=== PATIENT | female | born 1960 | race Caucasian/White ===

== ENCOUNTER → 2021-06-07 12:51 | Outpatient (BNVA) | payer MEDICAID, SELFPAY | PROVIDERS: Family Provider Internal Medicine; Visit Provider Nurse Practitioner Family | DX: J06.9 Acute upper respiratory infection, unspecified (principal); Z20.822 Contact with and (suspected) exposure to COVID-19 | CPT/HCPCS: 87635 ==

== ENCOUNTER 2021-06-14 07:09 | Outpatient (CLI) | payer MEDICAID, SELFPAY ==
[2021-06-14 07:38] VITALS: BP 138/87; PULSE 64; TEMP 36.6; O2SAT 97
--- NOTE | 2021-06-14 07:39 | AMB.MCA ---
Patient Information Referred by: SEGUN Zarate Symptom onset date: 06/05/21 COVID 19 common symptoms: positive fever(s), chills, cough, fatigue, body aches and headache(s) Severity: mild Treatment prior to arrival: none [facility] COVID test results: SARS-CoV-2 RNA (RT-PCR) Detected (NOT DETECTED) A 06/07/21 12:51 06/07/21 Criteria/Plan Inclusion/Exclusion Criteria weight >/= 40kg, + direct test </= 10 days ago and symptom onset </= 10 days ago BMI >/= 35 (new guidelines state BMI only needs to be over 25 which would qualify her) not requiring hospitalization, not requiring oxygen (if not chronically on oxygen) and no increase oxygen requirement (if chronically on oxygen) Patient education patient/family/caregiver received/reviewed fact sheet, Emergency Use Authorization/unapproved drug status discussed with patient/family/caregiver, alternatives to this treatment discussed with patient/family/caregiver, risks and benefits of medication reviewed with patient/family/caregiver, patient/family/caregiver given opportunity for questions, which were answered and patient consents to receiving Monoclonal Antibody Treatment Plan for treatment Meets criteria for Monoclonal Antibody infusion Ordering Monoclonal Antibody infusion for today
[2021-06-14 09:14] VITALS: BP 128/86; PULSE 62; TEMP 36.7; O2SAT 97
== END 2021-06-14 10:09 | disposition home or self-care (01) ==
LOC: ER 07:16
PROVIDERS: PCP Family Medicine; Visit Provider Nurse Practitioner Family
DX: U07.1 COVID-19 (principal)

== ENCOUNTER 2021-07-03 09:24 | Emergency (ER) | payer MEDICAID, SELFPAY ==
[2021-07-03] VITALS (13 sets, daily range): BP systolic 110–168; BP diastolic 61–101; PULSE 56–104; RESP 16–20; TEMP 37.4; O2SAT 93–98; BMI 39.3
--- NOTE | 2021-07-03 09:30 | USR_ITS ---
PROCEDURE INFORMATION: Exam: US Abdomen, Limited; Right Upper Quadrant Exam date and time: 07/03/2021 9:30 AM Age: 61 years old Clinical indication: Abdominal pain; Epigastric; Additional info: Ruq abd pain TECHNIQUE: Imaging protocol: US abdomen. Real time ultrasound with image documentation. Limited exam focused on the right upper quadrant. COMPARISON: US gall bladder [id number] 12/18/2015 9:41 AM FINDINGS: Liver: The liver measures approximately 12.1 cm in the sagittal plane. No focal liver mass or intrahepatic biliary ductal dilatation. Gallbladder: There is cholelithiasis. No gallbladder wall thickening or pericholecystic fluid. The technologist reported a negative sonographic Hernandez's sign. Common bile duct: The visualized extrahepatic bile duct measures up to 10.5 mm in diameter. The distal common bile duct was likely not visualized due to bowel gas. Pancreas: The pancreas was sought but not visualized due to interference by bowel gas. Right kidney: The right kidney measures approximately 9.5 cm in length. Normal parenchymal echogenicity. Mild diffuse parenchymal thinning. No hydronephrosis. Aorta: The visualized portion of the abdominal aorta is within normal limits. Portal venous: There is hepatopetal flow in the main portal vein on Doppler evaluation. Inferior vena cava: The visualized portion of the inferior vena cava is within normal limits. US/US gall bladder [id number] IMPRESSION: 1. Cholelithiasis. 2. Extrahepatic biliary ductal dilatation, cause uncertain.
--- NOTE | 2021-07-03 09:31 | W.ED.ABDPA2 ---
HPI - Abdominal Pain General: Chief Complaint: Abdominal Pain Stated Complaint: RUQ PAIN Time Seen by Provider: 07/03/21 09:26 History of Present Illness: HPI narrative: 61-year-old female comes in complaining of right upper quadrant pain that woke her up from sleep this morning. She is not previously had any symptoms like this. Not been any difficulty with reflux. She was diagnosed with Covid on June 07. Her symptoms have completely resolved she is not been short of breath. She is not noticed this pain being more significant with deep inspiration. She denies any diarrhea or any vomiting. She denies any hematemesis or coffee-ground emesis. She is not currently on any PPIs or H2 blockers. She does occasionally take 800 mg tablets of ibuprofen. She additionally is on Suboxone which she takes every day buprenorphine 8 naloxone 2. She is not noticed anything that exacerbates or relieves the discomfort. She did receive 100 mcg IM of fentanyl in route with only moderate relief of pain. MD elicited complaint: abdominal pain Pertinent past history: none Pain Consistency: constant Location: RUQ Severity: severe Quality: cramping and stabbing Radiation: none Migration to: no migration Exacerbating factors: nothing Relieving factors: nothing Associated Symptoms: Denies anorexia, belching, bloating, change in bowel habits, change in stool character, chills, coffee ground emesis, constipation, GI cramping, diarrhea, dyspepsia, dysuria, excessive flatus, fever(s), heartburn, hematochezia, hematuria, hematemesis, fecal incontinence, loose stools, melena, nausea, poor appetite, syncope and vomiting Review of Systems Const: Denies: fever(s) or chills ENMT: Denies: throat pain, ear or mastoid pain, nasal discharge or nasal congestion Card: Denies: syncope Resp: Denies: dyspnea, productive cough or non-productive cough GI: Denies: nausea, vomiting, hematemesis, coffee ground emesis, heartburn, diarrhea, constipation, bloating, GI cramping, belching, excessive flatus, fecal incontinence, change in bowel habits, change in stool character, hematochezia or melena : Denies: dysuria or hematuria Skin/Breast: Denies: rash or pruritus Physical Exam Const: COMMON NORMALS: no acute distress GENERAL APPEARANCE: cooperative and comfortable ORIENTATION/CONSCIOUSNESS: Yes awake, Yes oriented to person, Yes oriented to place and Yes oriented to time HENMT: COMMON NORMALS: normocephalic, atraumatic and hearing grossly normal bilaterally HEAD & SCALP: normocephalic and atraumatic Neck/C-Spine: COMMON NORMALS: no JVD Lymph: LYMPHATIC: no lymphadenopathy noted and no lymphedema noted Resp: COMMON NORMALS: normal respiratory effort, No retractions, No use of accessory muscles and clear to auscultation bilaterally AUSCULTATION: clear to auscultation bilaterally Cardio: COMMON NORMALS: no JVD, regular rate, regular rhythm and No murmurs present (Cardio) RATE: regular rate RHYTHM: regular rhythm GI: COMMON NORMALS: No hepatosplenomegaly present AUSCULTATION: Yes normoactive bowel sounds PALPATION: Yes Tenderness to palpation present (GI) Details: RUQ, No Guarding due to palpation present (GI) and Yes No hepatosplenomegaly present Extremity: COMMON NORMALS: normal to inspection, capillary refill normal, no clubbing, cyanosis or edema, no calf tenderness and no pedal edema Neuro: SENSORIUM/ORIENTATION: Yes oriented to person, Yes oriented to place and Yes oriented to time Skin: COMMON NORMALS: no rashes or lesions noted GENERAL SKIN EXAM: no rashes or lesions noted Course Vital Signs: Vital signs: Vital Signs Temperature 99.3 F 07/03/21 09:25 Pulse Rate 70 07/03/21 16:03 Respiratory Rate 18 07/03/21 16:03 Blood Pressure 110/78 07/03/21 16:03 Pulse Oximetry 97 07/03/21 16:03 MDM - Abdominal Pain MDM Narrative: Medical decision making narrative: Discussed imaging findings with the [facility]. There is a right lung mass left adrenal mass there is also something at the pancreatic head that is suspicious. There are some dilation of the common duct and there is cholelithiasis on the ultrasound. Concerned even though her liver functions lipase are normal she may have an early obstruction which is causing the pain. We will go ahead and do an MRCP also concerned about the possibility of PE we will get a CTA of the chest on her as well. MRCP there is no evidence of common bile duct blockage. She may have just passed a stone is no evidence of acute cholecystitis. Also the masses of concern on the CT were not identified on the pancreas. Organ to go ahead and discharge her home we will have her follow-up with her primary care doctor which will have case management set up. She will need further evaluation of the other areas of concern lung and left adrenal gland. This can be done to the primary care doctor. As to her abdominal pain will get and go ahead and get her set up for a HIDA scan and then have her follow-up with surgery. Reviewing chart I see that she did not get Levaquin at the time of discharge as had intended. Will call that in for her. We will also make sure case management gets the PCP set up in the follow-up on the imaging findings. Lab Data: Labs: Lab Results 07/03/21 07/03/21 07/03/21 Range/Units 10:10 10:10 10:37 WBC 10.4 H (4.0-10.0) 10^3/ uL RBC 4.62 (4.1-5.3) 10^6/u L Hgb 12.9 (11.5-15.3) g/dL Hct 40.2 (37.0-47.0) % MCV 87.0 (81-99) fl MCH 27.9 L (28.0-34.0) pg MCHC 32.1 (30.0-36.0) g/dL RDW 12.8 (12.1-15.1) % Plt Count 302 (130-400) 10^3/c mm MPV 9.5 (7.4-10.4) fL Neut % (Auto) 69.1 % Lymph % (Auto) 18.4 % [place] % (Auto) 8.4 % Eos % (Auto) 2.5 % Baso % (Auto) 0.9 % Neut # (Auto) 7.20 (1.8-7.7) 10^3/u L Lymph # (Auto) 1.9 (0.8-4.8) 10^3/u L [place] # (Auto) 0.9 (0.2-0.9) 10^3/u L Eos # (Auto) 0.3 (0.0-0.8) 10^3/u L Baso # (Auto) 0.1 (0.0-0.1) 10^3/u L Nucleated RBC % (a uto) 0 % Nucleated RBCs # 0.0 /100WBC D-Dimer 2.36 H (0-0.59) ug/mIFE U Sodium 136 (136-145) mmol/L Potassium 4.0 (3.5-5.1) mmol/L Chloride 100 (98-107) mmol/L Carbon Dioxide 25 (22-29) mmol/L Anion Gap 15.0 (5-19) BUN 18 (8-23) mg/dL Creatinine 1.0 H (0.5-0.9) mg/dL GFR Calculation 56.6 L (90-130) mL/min Glucose 101 (65-115) mg/dL Calculated Osmolal ity 284 L (285-295) mOsm/k g Calcium 8.7 (8.5-10.5) mg/dL Total Bilirubin 0.2 (0.15-1.2) mg/dL AST 11 (0-32) U/L ALT 6 (0-33) U/L Alkaline Phosphata se 95 (35-105) IU/L Total Protein 7.7 (6.6-8.7) g/dL Albumin 3.6 (3.5-5.2) g/dL Globulin 4.1 (1.3-4.6) g/dL Lipase 15 (13-60) U/L Urine Color (Yellow) Urine Appearance (CLEAR) Urine pH (5-7) Ur Specific Gravit y (1.005-1.030) Urine Protein (Negative) Urine Glucose (UA) (Normal) Urine Ketones (Negative) Urine Blood (Negative) Urine Nitrate (Negative) Urine Bilirubin (Negative) Urine Urobilinogen (Negative) mg/dL Ur Leukocyte Jory ase (Negative) 07/03/21 Range/Units 11:11 WBC (4.0-10.0) 10^3/ uL RBC (4.1-5.3) 10^6/u L Hgb (11.5-15.3) g/dL Hct (37.0-47.0) % MCV (81-99) fl MCH (28.0-34.0) pg MCHC (30.0-36.0) g/dL RDW (12.1-15.1) % Plt Count (130-400) 10^3/c mm MPV (7.4-10.4) fL Neut % (Auto) % Lymph % (Auto) % [place] % (Auto) % Eos % (Auto) % Baso % (Auto) % Neut # (Auto) (1.8-7.7) 10^3/u L Lymph # (Auto) (0.8-4.8) 10^3/u L [place] # (Auto) (0.2-0.9) 10^3/u L Eos # (Auto) (0.0-0.8) 10^3/u L Baso # (Auto) (0.0-0.1) 10^3/u L Nucleated RBC % (a uto) % Nucleated RBCs # /100WBC D-Dimer (0-0.59) ug/mIFE U Sodium (136-145) mmol/L Potassium (3.5-5.1) mmol/L Chloride (98-107) mmol/L Carbon Dioxide (22-29) mmol/L Anion Gap (5-19) BUN (8-23) mg/dL Creatinine (0.5-0.9) mg/dL GFR Calculation (90-130) mL/min Glucose (65-115) mg/dL Calculated Osmolal ity (285-295) mOsm/k g Calcium (8.5-10.5) mg/dL Total Bilirubin (0.15-1.2) mg/dL AST (0-32) U/L ALT (0-33) U/L Alkaline Phosphata se (35-105) IU/L Total Protein (6.6-8.7) g/dL Albumin (3.5-5.2) g/dL Globulin (1.3-4.6) g/dL Lipase (13-60) U/L Urine Color Yellow (Yellow) Urine Appearance Clear (CLEAR) Urine pH 5 (5-7) Ur Specific Gravit y 1.020 (1.005-1.030) Urine Protein Neg (Negative) Urine Glucose (UA) Norm (Normal) Urine Ketones Negative (Negative) Urine Blood Neg (Negative) Urine Nitrate Negative (Negative) Urine Bilirubin Neg (Negative) Urine Urobilinogen Norm (Negative) mg/dL Ur Leukocyte Jory ase Negative (Negative) Discharge Plan Discharge Patient Disposition: Home Clinical Impression: Biliary colic, Incidental lung nodule, Adrenal mass, left Condition: Stable Prescriptions: New promethazine 25 mg tablet 25 mg PO Q6H PRN (Reason: nausea and vomiting) Qty: 20 RF: 0 Protonix 40 mg tablet,delayed release (DR/EC) 40 mg PO QAM 56 Days Qty: 56 RF: 0 No Action ibuprofen 800 mg tablet 800 mg PO Q8H PRN (Reason: Pain) RF: 0 buprenorphine-naloxone [Suboxone] 8-2 mg film 1 film buccal DAILY RF: 0 gabapentin 800 mg tablet 400 mg PO DAILY RF: 0 Discharge Orders: Discharge ED (Routine); Ordered 07/03/21 Ordered By: Jony Neely Referrals: Sarah Hogan DO [Primary Care Provider] - Discharge Diet: As Directed Discharge Activity: Resume usual activity Patient Instructions: Abdominal Pain (ED), Opioid Safety Activity Restrictions/Additional Instructions: His management will call to get you set up for a HIDA scan and follow-up with a general surgeon. They will also help you arrange to establish with a primary care physician. Return if you have any worsening problems Coding Level of Care Code ED [employer] for [employer] Exam Comprehensive
[2021-07-03] MEDS: HYDROmorphone 1 mg/mL INJ 1 mL IVP (09:57)
[2021-07-03] MEDS: promethazine 25 mg/mL SDV 1 mL IM (09:58)
[2021-07-03 10:28] LABS: Basophils # 0.1 10^3/uL (0.0-0.1); Basophils % 0.9 %; Eosinophils # 0.3 10^3/uL (0.0-0.8); Eosinophils % 2.5 %; Hematocrit 40.2 % (37.0-47.0); Hemoglobin 12.9 g/dL (11.5-15.3); Lymphocytes # 1.9 10^3/uL (0.8-4.8); Lymphocytes % 18.4 %; Mean Corpuscular HGB Conc 32.1 g/dL (30.0-36.0); Mean Corpuscular Hemoglobin 27.9 pg (28.0-34.0); Mean Platelet Volume 9.5 fL (7.4-10.4); Monocytes # 0.9 10^3/uL (0.2-0.9); Monocytes % 8.4 %; Neutrophils % 69.1 %; Nucleated Red Blood Cells % 0 %; Platelet Count 302 10^3/cmm (130-400); Red Blood Count 4.62 10^6/uL (4.1-5.3); Red Cell Distribution Width 12.8 % (12.1-15.1); White Blood Count 10.4 10^3/uL (4.0-10.0)
[2021-07-03 10:50] LABS: Alanine Aminotransferase 6 U/L (0-33); Albumin Level 3.6 g/dL (3.5-5.2); Alkaline Phosphatase 95 IU/L (35-105); Aspartate Amino Transferase 11 U/L (0-32); Blood Urea Nitrogen 18 mg/dL (8-23); Calcium 8.7 mg/dL (8.5-10.5); Carbon Dioxide 25 mmol/L (22-29); Chloride 100 mmol/L (98-107); Globulin 4.1 g/dL (1.3-4.6); Glomerular Filtration Rate 56.6 mL/min (90-130); Glucose 101 mg/dL (65-115); Lipase 15 U/L (13-60); Osmolality Calculated 284 mOsm/kg (285-295); Sodium 136 mmol/L (136-145); Total Bilirubin 0.2 mg/dL (0.15-1.2); Total Protein 7.7 g/dL (6.6-8.7)
--- NOTE | 2021-07-03 11:15 | CTR_ITS ---
PROCEDURE INFORMATION: Exam: CT Abdomen And Pelvis With Contrast Exam date and time: 07/03/2021 11:15 AM Age: 61 years old Clinical indication: Abdominal pain; Generalized. TECHNIQUE: Imaging protocol: Computed tomography of the abdomen and pelvis with contrast. Radiation optimization: All CT scans at this facility use at least one of these dose optimization techniques: automated exposure control; mA and/or kV adjustment per patient size (includes targeted exams where dose is matched to clinical indication); or iterative reconstruction. Contrast material: OMNIPAQUE 300; Contrast volume: 95 ml; Contrast route: INTRAVENOUS (IV); COMPARISON: US GALLBLADDER 07/03/2021 9:50 AM RADIATION DOSE METRICS: Total DLP (mGy-cm): 1627.46 FINDINGS: Lungs: Partially visualized soft tissue mass or consolidation in the right middle lobe. Minimal bilateral dependent atelectasis, more so on the right. Liver: The liver is homogeneous and is not enlarged. Gallbladder and bile ducts: No calcified gallstones. No gallbladder wall thickening. No pericholecystic fluid or inflammation. The extrahepatic bile duct measures up to 10.5 mm in diameter. No calcified common bile duct calculus visualized. Pancreas: There is low-attenuation and haziness of the parenchyma of the pancreatic head. This may be due to focal pancreatitis or neoplasm. No pancreatic ductal dilatation. No pseudocyst formation. Spleen: The spleen is homogeneous and is not enlarged. Adrenal glands: There is a 3.4 cm left adrenal mass with nonspecific attenuation measurements. The right adrenal gland appears normal. Kidneys and ureters: No hydronephrosis, nephrolithiasis, or renal mass. Stomach and bowel: No bowel obstruction, colitis or diverticulitis. Appendix: The appendix has a normal caliber with no wall thickening. No periappendiceal stranding. Intraperitoneal space: No ascites or pneumoperitoneum. Vasculature: No abdominal aortic aneurysm. The mesenteric arteries are patent. The mesenteric, portal, and hepatic veins are patent. Lymph nodes: No enlarged lymph nodes. Urinary bladder: The urinary bladder is small in volume. No bladder calculus. Reproductive: Exophytic calcified lesion off the posterior body of the uterus likely due to a calcified leiomyoma. Bones/joints: There is a curvature of the lumbar spine convex to the left associated with multilevel disc degeneration and facet arthropathy. Soft tissues: No acute soft tissue abnormality. CT/CT abdomen pelvis w con* [id number] IMPRESSION: 1. Changes involving the pancreatic head which might be due to acute pancreatitis or neoplasm. Correlate with the appropriate laboratory parameters. 2. Extrahepatic biliary ductal dilatation. This could be due to compression of the distal common bile duct. This study cannot exclude choledocholithiasis. 3. The prior comparison US GALLBLADDER demonstrated cholelithiasis. 4. Soft tissue mass versus consolidation in the right middle lobe. Recommend CT CHEST with IV contrast in follow-up. 5. Left adrenal mass. The differential diagnosis includes metastatic deposit given the above. Radiation Dose CTDIVOL = (mGy): DLP = 1627.46 (mGy-cm)
[2021-07-03] MEDS: iohexol 300 mg/mL 100 mL Btl IV (11:43)
[2021-07-03 11:49] LABS: Add Urine Microscopic? NO; Charge for UA Resulting for Rev
[2021-07-03 12:12] LABS: Bilirubin Urine Neg (Negative); Blood Urine Neg (Negative); Glucose Urine UA Norm (Normal); Ketones Urine Negative (Negative); Leukocyte Esterase Urine Negative (Negative); Nitrate Urine Negative (Negative); Protein Urine Neg (Negative); Urine Appearance Clear (CLEAR); Urine Color Yellow (Yellow); Urobilinogen Urine Norm (Negative); pH Urine 5 (5-7)
--- NOTE | 2021-07-03 12:26 | CTR_ITS ---
PROCEDURE INFORMATION: Exam: CTA Chest With Contrast Exam date and time: 07/03/2021 12:26 PM Age: 61 years old Clinical indication: Abnormal findings; Abnormal radiologic exam of lung or chest; Patient HX: SOB w rll abnormality seen on abd CT; Additional info: Dyspnea TECHNIQUE: Imaging protocol: Computed tomographic angiography of the chest with contrast. 3D rendering (Not supervised by radiologist): MIP and/or 3D reconstructed images were created by the technologist. Radiation optimization: All CT scans at this facility use at least one of these dose optimization techniques: automated exposure control; mA and/or kV adjustment per patient size (includes targeted exams where dose is matched to clinical indication); or iterative reconstruction. Contrast material: VISI 320; Contrast volume: 69 ml; Contrast route: INTRAVENOUS (IV); COMPARISON: CT ABDOMEN/PELVIS 07/03/2021 11:38 AM RADIATION DOSE METRICS: Total DLP (mGy-cm): 588.48 FINDINGS: Pulmonary arteries: No sign of acute pulmonary embolism. Aorta: No thoracic aortic aneurysm or dissection. Lungs: There is a dominant focal opacity in the anteromedial right middle lobe which is partially bounded by the major and minor fissures. The fissures are not bowed. There is air bronchogram formation within the opacity as well as nondisplaced opacifying pulmonary arterial branches. The findings favor pneumonia as opposed to neoplasm. There are smaller noncalcified opacities in the right middle lobe as well as the posteromedial left lower lobe which could be due to additional foci of pneumonia. Bilateral asymmetric dependent atelectasis, more so on the right side. Pleural spaces: No pneumothorax. No pleural effusion. Heart: The heart is not enlarged. No pericardial effusion. Lymph nodes: Slightly prominent right hilar and mediastinal lymph nodes which could be reactive in nature. Bones/joints: No acute osseous abnormality. Soft tissues: No acute soft tissue abnormality. CT/CT angio chest PE protcl [id number] IMPRESSION: Favor multifocal pneumonia with the dominant focus in the right middle lobe. Strongly recommend follow-up CT CHEST after treatment to document resolution. Radiation Dose CTDIVOL = (mGy): DLP = 588.48 (mGy-cm)
--- NOTE | 2021-07-03 12:54 | MRR_ITS ---
PROCEDURE INFORMATION: Exam: MR Abdomen Without Contrast Exam date and time: 07/03/2021 12:54 PM Age: 61 years old Clinical indication: Abdominal pain; Localized; Right upper quadrant (ruq); Additional info: Dialated cbd TECHNIQUE: Imaging protocol: MR of the abdomen without contrast. COMPARISON: CT abdomen pelvis w con* [id number] 07/03/2021 11:38 AM FINDINGS: Liver: No mass. Gallbladder and bile ducts: Cholelithiasis. No gallbladder distention, wall thickening, or pericholecystic fluid. The common bile duct is mildly dilated up to 1 cm, but smoothly tapers without stricturing or filling defect. No intrahepatic biliary dilation. Pancreas: Unremarkable. No ductal dilation. Spleen: Unremarkable. No splenomegaly. Adrenal glands: 3 cm left adrenal lesion with signal dropout on in and out phase sequences consistent with microscopic fat/adenoma. Right adrenal gland is unremarkable. Kidneys and ureters: Unremarkable. No solid mass. No hydronephrosis. Kidneys and ureters: Unremarkable. No solid mass. No hydronephrosis. Stomach and bowel: Visualized stomach and intestines are unremarkable. Intraperitoneal space: No free fluid. Arteries: No abdominal aortic aneurysm. Bones/joints: Unremarkable. Soft tissues: Unremarkable. MR/MR MRCP [id number] IMPRESSION: 1. Mildly dilated common bile duct at 1 cm, likely incidental. There is no evidence of biliary stricturing or filling defect to suggest choledocholithiasis. 2. Cholelithiasis without imaging findings to suggest acute cholecystitis. 3. 3 cm left adrenal adenoma. COMMENTS: Consistent with the [place] [employer]'s Incidental Findings Committee white paper (J Am Allen Radiol 2017): For any incidental adrenal lesion greater than 1 cm but less than 4 cm classified in this report as benign, likely benign, or containing fat (including classification as an adenoma or myelolipoma), no follow-up imaging is recommended per consensus recommendations based on imaging criteria. Further lab evaluation could be pursued if warranted based on clinical findings.
[2021-07-03 13:16] LABS: D Dimer 2.36 ug/mIFEU (0-0.59)
[2021-07-03] MEDS: iodixanol 320 mg/mL 100mL Btl IV (13:35)
[2021-07-03] MEDS: HYDROmorphone 1 mg/mL INJ 1 mL 0.5 MG IVP (13:49)
--- NOTE | 2021-07-05 11:06 | DCPLANNER ---
Addendum entered by Talia Zhu 07/13/21 07:31: area manager emailed Rosanna at General Surgery to check on appointment for patient. Addendum entered by Talia Zhu 07/07/21 13:44: When insurance case manager spoke with patient, she stated that she had an appointment scheduled with her primary care physician. Original Note: area manager had message to schedule an outpatient HIDA scan, a followup with general surgery, and to speak with patient about a primary care. area manager emailed patients information to both Rosanna and Brianne at [facility] General Surgery. Patients information will be printed and reviewed. Clinic will call patient with appointment information. area manager faxed signed order for HIDA scan to centralized scheduling, who will call patient with appointment information. area manager spoke with patient about getting a primary care physician. Patient stated that she has a primary care physician.
--- NOTE | 2021-07-07 14:08 | DCPLANNER ---
Patient has a HIDA scan scheduled for August 05, 2021 at 10:00. Centralized scheduling will call patient with appointment information.
--- NOTE | 2021-07-14 07:31 | DCPLANNER ---
Patient has a follow up appointment scheduled for , July 22, 2021 at 9:[address] Grewal. Clinic will call patient with appointment information.
--- NOTE | 2021-08-06 08:36 | DCPLANNER ---
Patient had a follow up appointment scheduled for 07.22.21 with general surgery - patient did attend appointment. Patient had a HIDA scan scheduled for 08.05.21 - patient did not attend appointment.
== END 2021-07-03 16:03 | disposition home or self-care (01) ==
PROVIDERS: Physician Assistant; Emergency Provider Family Medicine; PCP Family Medicine
DX: E27.9 Disorder of adrenal gland, unspecified (principal); K80.50 Calculus of bile duct without cholangitis or cholecystitis without obstruction; R91.1 Solitary pulmonary nodule
CPT/HCPCS: 71275; 74177; 74181; 76705; 80053; 81003; 83690; 85025; 85378; 96372; 96374; 96376; 99284; 99291; 99292; J1170; J2550; Q9967

== ENCOUNTER 2022-06-13 11:57 | Outpatient (CLI) | payer MEDICAID, SELFPAY ==
[2022-06-13 12:56] LABS: Basophils # 0.1 10^3/uL (0.0-0.1); Basophils % 1.1 %; Eosinophils # 0.2 10^3/uL (0.0-0.8); Eosinophils % 3.9 %; Hematocrit 39.9 % (37.0-47.0); Hemoglobin 13.2 g/dL (11.5-15.3); Lymphocytes # 2.1 10^3/uL (0.8-4.8); Lymphocytes % 37.6 %; Mean Corpuscular HGB Conc 33.1 g/dL (30.0-36.0); Mean Corpuscular Hemoglobin 28.6 pg (28.0-34.0); Mean Corpuscular Volume 86.4 fl (81-99); Mean Platelet Volume 9.4 fL (7.4-10.4); Monocytes # 0.4 10^3/uL (0.2-0.9); Monocytes % 7.2 %; Neutrophils # 2.73 10^3/uL (1.8-7.7); Nucleated Red Blood Cells % 0 %; Platelet Count 213 10^3/cmm (130-400); Red Blood Count 4.62 10^6/uL (4.1-5.3); Red Cell Distribution Width 12.8 % (12.1-15.1); White Blood Count 5.5 10^3/uL (4.0-10.0)
[2022-06-13 13:45] LABS: Alanine Aminotransferase 10 U/L (0-33); Albumin Level 4.5 g/dL (3.5-5.2); Alkaline Phosphatase 61 IU/L (35-105); Anion Gap 13.6 (5-19); Aspartate Amino Transferase 16 U/L (0-32); Blood Urea Nitrogen 20 mg/dL (8-23); Calcium 9.2 mg/dL (8.5-10.5); Carbon Dioxide 27 mmol/L (22-29); Chloride 103 mmol/L (98-107); Chol HDL Ratio 2.77 mg/dL (0.0-4.40); Cholesterol 166 mg/dL (0-200); Globulin 3.1 g/dL (1.3-4.6); Glomerular Filtration Rate 63.7 mL/min (90-130); Glucose 92 mg/dL (65-115); HDL Cholesterol 60 mg/dL (60-100); LDL Cholesterol Calculated 94 mg/dL (50-129); LDL HDL Ratio 1.57 RATIO (0.00-3.22); Osmolality Calculated 290 mOsm/kg (285-295); Potassium 4.6 mmol/L (3.5-5.1); Sodium 139 mmol/L (136-145); Thyroid Stimulating Hormone 0.91 uIU/mL (0.27-4.20); Total Bilirubin 0.3 mg/dL (0.15-1.2); Total Protein 7.6 g/dL (6.6-8.7); Triglycerides 60 mg/dL (0-150)
== END 2022-06-13 11:58 | disposition home or self-care (01) ==
LOC: LAB 12:07
PROVIDERS: PCP Family Medicine; Visit Provider Family Medicine
DX: I10 Essential (primary) hypertension (principal); E88.81 Metabolic syndrome and other insulin resistance; R53.82 Chronic fatigue, unspecified; R63.5 Abnormal weight gain
CPT/HCPCS: 36415; 80053; 80061; 84443; 85025

== ENCOUNTER 2022-09-02 11:39 | Outpatient (CLI) | payer MEDICAID, SELFPAY ==
--- NOTE | 2022-09-02 11:59 | MM_ITS ---
WS: [id number] BILATERAL SCREENING DIGITAL TOMOSYNTHESIS MAMMOGRAM WITH CAD HISTORY: SCREENING COMPARISON: 09/09/2020, 08/17/2015 Bilateral CC and MLO views with tomosynthesis and synthetic mammography submitted. Computer aided det ection analyzed. Breast composition: There are scattered areas of fibroglandular density. No suspicious masses, microc alcifications or architectural distortion. Stable asymmetry upper-outer quadrant of the RIGHT breast. Benign calcifications in each breast. MM/[place] [id number] IMPRESSION: BI-RADS: 2-Benign FOLLOW UP: 1 Year Follow-up
== END 2022-09-02 11:40 | disposition home or self-care (01) ==
LOC: RAD 11:41
PROVIDERS: PCP Family Medicine; Visit Provider Nurse Practitioner Family
DX: Z12.31 Encounter for screening mammogram for malignant neoplasm of breast (principal)
CPT/HCPCS: 77063; 77067

== ENCOUNTER 2024-12-17 15:42 | Outpatient (CLI) | payer MEDICAID, SELFPAY ==
[2024-12-17 16:47] LABS: Basophils # 0.1 10^3/uL (0.0-0.1); Basophils % 1.3 %; Eosinophils # 0.2 10^3/uL (0.0-0.8); Eosinophils % 4.5 %; Lymphocytes # 1.8 10^3/uL (0.8-4.8); Lymphocytes % 38.1 %; Mean Corpuscular HGB Conc 32.1 g/dL (30-55); Mean Corpuscular Hemoglobin 28.9 pg (27-33); Mean Corpuscular Volume 90.3 fl (85-98); Mean Platelet Volume 8.7 fL (7.4-10.4); Monocytes # 0.3 10^3/uL (0.2-0.9); Monocytes % 6.9 %; Neutrophils # 2.28 10^3/uL (1.8-7.7); Nucleated Red Blood Cells % 0 %; Platelet Count 234 10^3/cmm (157-399); Red Blood Count 4.32 10^6/uL (3.85-5.65); Red Cell Distribution Width 13.1 % (12.1-15.1); White Blood Count 4.65 10^3/uL (3.29-11.43)
[2024-12-17 18:23] LABS: Alanine Aminotransferase 13 U/L (0-33); Albumin Level 4.3 g/dL (3.5-5.2); Alkaline Phosphatase 69 U/L (35-105); Anion Gap 14.7 (5-19); Aspartate Amino Transferase 17 U/L (0-32); Blood Urea Nitrogen 22 mg/dL (8-23); Calcium 9.3 mg/dL (8.5-10.5); Carbon Dioxide 26 mmol/L (22-29); Chloride 101 mmol/L (98-107); Chol HDL Ratio 2.43 mg/dL (0.0-4.40); Cholesterol 175 mg/dL (0-200); Globulin 3.5 g/dL (1.3-4.6); Glomerular Filtration Rate 50.2 mL/min (90-130); Glucose 91 mg/dL (65-115); HDL Cholesterol 72 mg/dL (60-100); LDL Cholesterol Calculated 95 mg/dL (50-129); LDL HDL Ratio 1.32 RATIO (0.00-3.22); Osmolality Calculated 287 mOsm/kg (285-295); Potassium 4.7 mmol/L (3.5-5.1); Sodium 137 mmol/L (136-145); Thyroid Stimulating Hormone 0.66 uIU/mL (0.27-4.20); Total Bilirubin 0.2 mg/dL (0.15-1.2); Total Protein 7.8 g/dL (6.6-8.7); Triglycerides 41 mg/dL (0-150)
== END 2024-12-17 15:43 | disposition home or self-care (01) ==
LOC: LAB 15:54
PROVIDERS: PCP Family Medicine; Visit Provider Nurse Practitioner Family
DX: R63.5 Abnormal weight gain (principal); N18.31 Chronic kidney disease, stage 3a; I10 Essential (primary) hypertension
CPT/HCPCS: 80053; 80061; 84443; 85025

== ENCOUNTER 2025-02-04 17:32 | Emergency (ER) | payer MEDICAID, SELFPAY ==
--- NOTE | 2025-02-04 17:34 | ECG_ITS ---
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 Measurements Intervals [place] Rate: 83 P: 48 TX: 161 QRS: 46 QRSD: 79 T: 68 QT: 323 QTc: 380 Interpretive Statements SINUS RHYTHM POSSIBLE LEFT ATRIAL ENLARGEMENT [-0.1mV P-WAVE IN V1/V2] No previous ECG available for comparison Electronically Signed On 02-05-2025 12:32:20 CDT by Cindi Longoria M.D. [email or web address]
--- NOTE | 2025-02-04 17:36 | XRR_ITS ---
PROCEDURE INFORMATION: Exam: XR Chest Exam date and time: 02/04/2025 6:01 PM Age: 64 years old Clinical indication: Pain; Chest pressure; Additional info: Cp TECHNIQUE: Imaging protocol: Radiologic exam of the chest. Views: 1 view. COMPARISON: CT angio chest PE protcl [id number] 07/03/2021 1:26 PM FINDINGS: Lungs: No focal consolidation. Pleural spaces: No evidence of pneumothorax. No evidence of pleural effusion. Heart/Mediastinum: Cardiomediastinal silhouette is within normal limits. Bones/joints: No evidence of acute osseous abnormality. XR/XR chest 1V portable [id number] IMPRESSION: 1. No acute cardiopulmonary abnormality.
[2025-02-04 17:39] VITALS: BP 128/91; PULSE 84; RESP 20; TEMP 36.9; O2SAT 100; BMI 29.8
[2025-02-04 18:11] LABS: Basophils # 0.1 10^3/uL (0.0-0.1); Eosinophils # 0.1 10^3/uL (0.0-0.8); Eosinophils % 1.5 %; Hematocrit 41.7 % (36-47); Lymphocytes # 2.1 10^3/uL (0.8-4.8); Lymphocytes % 34.2 %; Mean Corpuscular HGB Conc 31.7 g/dL (30-55); Mean Corpuscular Hemoglobin 28.3 pg (27-33); Mean Corpuscular Volume 89.5 fl (85-98); Mean Platelet Volume 8.7 fL (7.4-10.4); Monocytes # 0.3 10^3/uL (0.2-0.9); Monocytes % 5.6 %; Neutrophils # 3.47 10^3/uL (1.8-7.7); Neutrophils % 57.5 %; Nucleated Red Blood Cells % 0 %; Platelet Count 236 10^3/cmm (157-399); Red Blood Count 4.66 10^6/uL (3.85-5.65); Red Cell Distribution Width 13.5 % (12.1-15.1); White Blood Count 6.03 10^3/uL (3.29-11.43)
[2025-02-04 18:16] LABS: INR 0.99 (0.8-1.2)
[2025-02-04 18:17] LABS: Troponin(5th) Baseline 14 ng/L (0-10)
[2025-02-04 18:19] LABS: Alanine Aminotransferase 8 U/L (0-33); Albumin Level 4.6 g/dL (3.5-5.2); Alkaline Phosphatase 64 U/L (35-105); Anion Gap 16.6 (5-19); Aspartate Amino Transferase 14 U/L (0-32); Blood Urea Nitrogen 33 mg/dL (8-23); Calcium 9.1 mg/dL (8.5-10.5); Carbon Dioxide 20 mmol/L (22-29); Chloride 105 mmol/L (98-107); Creatinine Clr Calc Pharmacy 38.7209; Globulin 2.7 g/dL (1.3-4.6); Glucose 76 mg/dL (65-115); Lipase 18 U/L (13-60); Osmolality Calculated 290 mOsm/kg (285-295); Potassium 4.6 mmol/L (3.5-5.1); Sodium 137 mmol/L (136-145); Total Bilirubin 0.2 mg/dL (0.15-1.2); Total Protein 7.3 g/dL (6.6-8.7)
[2025-02-04 18:30] VITALS: BP 127/89; PULSE 71; RESP 18; O2SAT 95
[2025-02-04 19:00] VITALS: BP 98/82; PULSE 76; RESP 18; O2SAT 100
--- NOTE | 2025-02-04 19:30 | ED_ITS ---
HPI - Chest Pain 2 General: Chief Complaint: Chest Pain Stated Complaint: chest tightness Time Seen by Provider: 02/04/25 17:59 History of Present Illness: 64-year-old female with a history of chr onic pain syndrome mostly recently on Suboxone who presents to the emergency room with chest pain. She is having a left central chest pressure. This radiated to her neck and back. She is very tearful and anxious on presentation. She also tells me her blood pressure has been very low recently after she was started on lisinopril. No fevers. No cough. No abdominal pain. No vomiting. Related Data Home Medications ?Medication ?Instructions ?Recorded ?Confirmed buprenorphine 8 mg-naloxone 2 mg 1 film buccal DAILY 0 06/07/21 07/24/21 sublingual film (Suboxone) ibuprofen 800 mg tablet 800 mg PO Q8H PRN Pain 06/0707/24/21 gabapentin 800 mg tablet 400 mg PO DAILY 07/03/2110/03 baclofen 10 mg tablet 10 mg PO DAILY 07/22/2107/14 pantoprazole 40 mg tablet,delayed 40 mg PO DAILY 07/2207/24/21 release Previous Rx's ?Medication ?Instructions ?Recorded cefdinir 300 mg capsule 300 mg PO BID 5 days #10 cap s 02/04/25 Allergies Allergy/AdvReac Type Severity Reaction Status Date / Time No Known Allergies Allergy Verified 07/24/21 07:40 Review of Systems 2 Narrative: Constitutional symptoms: Negative except as documented in HPI. Skin symptoms: Negative except as documented in HPI. Eye symptoms: Negative except as documented in HPI. ENMT symptoms: Negative except as documented in HPI. Respiratory symptoms: Negative except as documented in HPI. Cardiovascular symptoms: Negative except as documented in HPI. Gastrointestinal symptoms: Negative except as documented in HPI. Genitourinary symptoms: Negative except as documented in HPI. Musculoskeletal symptoms: Negative except as documented in HPI. Neurologic symptoms: Negative except as documented in HPI. Psychiatric symptoms: Negative except as documented in HPI. Endocrine symptoms: Negative except as documented in HPI. PFSH ED 2 PFSH: Family History Other CAD (coronary artery disease) Cancer Hypertension Denies family history of Diabetes Dementia Chronic kidney disease (CKD) Lung disease Stroke Social History Smoking and tobacco/nicotine status: current every day tobacco/nicotine user Physical Exam 2 Narrative: EXAM NARRATIVE: General: Alert, no acute distress. Skin: Warm, dry. Head: Normocephalic, atraumatic. Neck: Supple, trachea midline. Eye: Extraocular movements are intact. Ears, nose, mouth and throat: mucosa moist. Cardiovascular: Regular, Normal peripheral perfusion. Respiratory: Lungs are clear to auscultation, respirations are non-labored, breath sounds are equal, Symmetrical chest wall expansion. Gastrointestinal: Soft, Nontender, Non distended Musculoskeletal: Normal ROM, no deformity. Neurological: Alert and oriented, No focal neurological deficit observed. Psychiatric: Cooperative, tearful and anxious Course 2 Vital Signs: Vital signs: Vital Signs Temperature 98.4 F 02/04/25 17:39 Pulse Rate 85 02/04/25 21:32 Respiratory Rate 16 02/04/25 21:32 Blood Pressure 126/83 02/04/25 21:32 Pulse Oximetry 100 02/04/25 21:32 Oxygen Delivery Me thod Room Air 02/04/25 21:32 MDM - Chest Pain Medical Decision Making Differential diagnosis for patient with chest pain includes but is not limited to and based on the above HPI, review of systems and physical exam: Pneumonia. unstable angina. angina. Acute coronary syndrome / OR. Pulmonary embolism. Costochondritis / musculoskeletal. Pleurisy. Pericarditis. Esophageal spasm. Pancreatis. Cholecystitis. Orders placed to evaluate differential diagnosis based on the above differential, HPI and physical exam EKG: Time 1737. Rate 83. Normal sinus rhythm, No ST-T changes, no ectopy, normal AK & QRS intervals, This was reviewed and interpreted by myself the ER physician at 1740 Chest x-ray: No acute process. No infiltrate. No pneumothorax. This was reviewed and interpreted by myself the emergency room physician. I also reviewed the radiology report. Lab Review: Laboratory results were reviewed and interpreted by myself the emergency room physician. No leukocytosis. No anemia. Patient does have a slight increase in her BUN and creatinine from her baseline around 1-1.1 she is 34 and 1.4 today. Urinalysis has 21-50 whites but no bacteria. However given renal function etc. I am going to place her on some antibiotics for a few days. She also received some fluids while she is here. Discussed holding her lisinopril. Serial cardiac markers are negative I reviewed the patient's medical record. Reexamination: Patient remained stable. No increased work of breathing. No altered mental status. No focal motor deficits. Assessment and plan: Noncardiac chest pain Urinary tract infection Dehydration Acute renal insufficiency ? Normal saline bolus, IV Rocephin. - Discharged home - Discussed plan with patient. Answered any questions. - Evaluation and treatment of this problem were appropriate in the emergency setting. Lab Data 02/04/25 17:47 02/04/25 17:47 Radiology Impressions Chest X-Ray 02/04/25 17:36 IMPRESSION: 1. No acute cardiopulmonary abnormality. Laboratory Results WBC 6.03 10^3/uL (3.29-11.43) 02/04/25 17:47 RBC 4.66 10^6/uL (3.85-5.65) 02/04/25 17:47 Hgb 13.20 g/dL (11.27-16.99) 02/04/25 17:47 Hct 41.7 % (36-47) 02/04/25 17:47 MCV 89.5 fl (85-98) 02/04/25 17:47 MCH 28.3 pg (27-33) 02/04/25 17:47 MCHC 31.7 g/dL (30-55) 02/04/25 17:47 RDW 13.5 % (12.1-15.1) 02/04/25 17:47 Plt Count 236 10^3/cmm (157-399) 02/04/25 17:47 MPV 8.7 fL (7.4-10.4) 02/04/25 17:47 Neut % (Auto) 57.5 % 02/04/25 17:47 Lymph % (Auto) 34.2 % 02/04/25 17:47 [place] % (Auto) 5.6 % 02/04/25 17:47 Eos % (Auto) 1.5 % 02/04/25 17:47 Baso % (Auto) 1.0 % 02/04/25 17:47 Neut # (Auto) 3.47 10^3/uL (1.8-7.7) 02/04/25 17:47 Lymph # (Auto) 2.1 10^3/uL (0.8-4.8) 02/04/25 17:47 [place] # (Auto) 0.3 10^3/uL (0.2-0.9) 02/04/25 17:47 Eos # (Auto) 0.1 10^3/uL (0.0-0.8) 02/04/25 17:47 Baso # (Auto) 0.1 10^3/uL (0.0-0.1) 02/04/25 17:47 Nucleated RBC % (auto) 0 % 02/04/25 17:47 Nucleated RBCs # 0.0 /100WBC 02/04/25 17:47 PT 13.80 SECONDS (12.1-14.9) 02/04/25 17:47 INR 0.99 (0.8-1.2) 02/04/25 17:47 Sodium 137 mmol/L (136-145) 02/04/25 17:47 Potassium 4.6 mmol/L (3.5-5.1) 02/04/25 17:47 Chloride 105 mmol/L (98-107) 02/04/25 17:47 Carbon Dioxide 20 mmol/L (22-29) L 02/04/25 17:47 Anion Gap 16.6 (5-19) 02/04/25 17:47 BUN 33 mg/dL (8-23) H 02/04/25 17:47 Creatinine 1.4 mg/dL (0.5-0.9) H 02/04/25 17:47 GFR Calculation 38.0 mL/min (90-130) L 02/04/25 17:47 Glucose 76 mg/dL (65-115) 02/04/25 17:47 Calculated Osmolality 290 mOsm/kg (285-295) 02/04/25 17:47 Calcium 9.1 mg/dL (8.5-10.5) 02/04/25 17:47 Total Bilirubin 0.2 mg/dL (0.15-1.2) 02/04/25 17:47 AST 14 U/L (0-32) 02/04/25 17:47 ALT 8 U/L (0-33) 02/04/25 17:47 Alkaline Phosphatase 64 U/L (35-105) 02/04/25 17:47 Troponin T Baseline 14 ng/L (0-10) H 02/04/25 17:47 Troponin T 120 Minute 10.87 ng/L (0-10) H 02/04/25 20:25 Delta Troponin T -3.13 ABS# (0-10) L 02/04/25 20:25 Total Protein 7.3 g/dL (6.6-8.7) 02/04/25 17:47 Albumin 4.6 g/dL (3.5-5.2) 02/04/25 17:47 Globulin 2.7 g/dL (1.3-4.6) 02/04/25 17:47 Lipase 18 U/L (13-60) 02/04/25 17:47 Urine Color Yellow (Yellow) 02/04/25 20:04 Urine Appearance Clear (CLEAR) 02/04/25 20: Urine pH 5.5 (5-7) 02/04/25 20:04 Ur Specific [place] 1.019 (1.005-1.030) 02/04/25 20:04 Urine Protein Negative (Negative) 02/04/25 20:04 Urine Glucose (UA) 3+ (Normal) H 02/04/25 20:04 Urine Ketones Negative (Negative) 02/04/25 20:04 Urine Blood Negative (Negative) 02/04/25 20:04 Urine Nitrate Negative (Negative) 02/04/25 20: Urine Bilirubin Negative (Negative) 02/04/25 20:04 Urine Urobilinogen 0.2 mg/dL (Negative) 02/04/25 20:04 Ur Leukocyte Esterase 2+ (Negative) A 02/04/25 20:04 Urine RBC 0-2 /hpf (0-2) 02/04/25 20:04 Urine WBC 21-50 /hpf (0-5) H 02/04/25 20:04 Ur Squamous Epith Cells 0-5 /hpf (0-5) 02/04/25 20:04 Amorphous Sediment Not Reportable 02/04/25 20:04 Urine Bacteria None seen /hpf (NONE) 02/04/25 20:04 Hyaline Casts 2.46 /lpf 02/04/25 20:04 All radiology interpretation(s) finalized by discharge Discharge Plan Discharge Patient Disposition: Home Clinical Impression: Non-cardiac chest pain, Dehydration, Renal insufficiency, Urinary tract infection Condition: Stable Prescriptions: New cefdinir 300 mg capsule 300 mg PO BID 5 Days Qty: 10 0RF No Action ibuprofen 800 mg tablet 800 mg PO Q8H PRN (Reason: Pain) buprenorphine-naloxone [Suboxone] 8-2 mg film 1 film buccal DAILY baclofen 10 mg tablet 10 mg PO DAILY pantoprazole 40 mg tablet,delayed release (DR/EC) 40 mg PO DAILY gabapentin 800 mg tablet 400 mg PO DAILY Discharge Orders: Discharge ED (Routine); Ordered 02/04/25 Ordered By: Amira Bethea Referrals: Sarah Hogan DO [Primary Care Provider] - Discharge Diet: Usual diet Discharge Activity: Increase activity as tolerated Patient Instructions: Noncardiac Chest Pain (ED), Opioid Safety, Pain Management Activity Restrictions/Additional Instructions: Thank you for choosing [facility] for your healthcare needs today. Please realize this is an emergency room and that we are providing you with a medical screening exam and this may not be complete and all inclusive of all the testing and or work up that you may need to determine your ailment or severity of your illness. You have been screened and evaluated and felt safe for discharge. Health conditions do change or evolve sometimes and as such it is important that you follow up with your Primary Doctor to be re checked, 3-5 days is a general good time frame for follow up. 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
[2025-02-04] MEDS: sodium chloride 0.9% 500 ML 999 ML IV (20:19)
[2025-02-04 20:47] LABS: Troponin 5 2HR 10.87 ng/L (0-10)
[2025-02-04 20:51] LABS: Troponin 5 2HR Delta -3.13 ABS# (0-10)
[2025-02-04 21:15] LABS: Bilirubin Urine Negative (Negative); Blood Urine Negative (Negative); Glucose Urine UA 3+ (Normal); Ketones Urine Negative (Negative); Leukocyte Esterase Urine 2+ (Negative); Nitrate Urine Negative (Negative); Protein Urine Negative (Negative); Specific Gravity, Urine 1.019 (1.005-1.030); Urine Appearance Clear (CLEAR); Urine Color Yellow (Yellow); Urobilinogen Urine 0.2 mg/dL (Negative); pH Urine 5.5 (5-7)
[2025-02-04 21:20] LABS: Bacteria Urine None Seen /hpf; Hyaline Casts Urine 2.46 /lpf; RBC Urine 0-2 /hpf (0-2); Squamous Epithelial Cell Urine 0-5 /hpf (0-5); WBC Urine 21-50 /hpf (0-5)
[2025-02-04 21:32] VITALS: BP 126/83; PULSE 85; RESP 16; O2SAT 100
[2025-02-04 21:34] LABS: Add Urine Culture? Yes
[2025-02-04] MEDS: cefTRIAXone 1,000 mg SDV 1000 MG IVP (22:11)
[2025-02-04 22:22] VITALS: BP 117/88; PULSE 82; RESP 16; O2SAT 100
== END 2025-02-04 22:21 | disposition home or self-care (01) ==
PROVIDERS: Emergency Medicine; Emergency Provider Emergency Medicine; PCP Family Medicine
DX: R07.89 Other chest pain (principal); E86.0 Dehydration; N28.9 Disorder of kidney and ureter, unspecified; N39.0 Urinary tract infection, site not specified; Z72.0 Tobacco use
CPT/HCPCS: 71045; 80053; 81001; 83690; 84484; 85025; 85610; 87086; 93005; 96361; 96374; 99285; J0696; J7040

== ENCOUNTER 2025-03-06 13:58 | Outpatient (CLI) | payer MEDICAID, SELFPAY ==
[2025-03-06 14:47] LABS: Blood Urea Nitrogen 28 mg/dL (8-23); Carbon Dioxide 21 mmol/L (22-29); Chloride 107 mmol/L (98-107); Glomerular Filtration Rate 50.2 mL/min (90-130); Glucose 112 mg/dL (65-115); Osmolality Calculated 292 mOsm/kg (285-295); Sodium 138 mmol/L (136-145)
== END 2025-03-06 13:59 | disposition home or self-care (01) ==
LOC: LAB 14:02
PROVIDERS: PCP Family Medicine; Visit Provider Nurse Practitioner Family
DX: N18.32 Chronic kidney disease, stage 3b (principal)
CPT/HCPCS: 36415; 80048